=== PATIENT | female | born 1960 | race Caucasian/White ===

== ENCOUNTER 2022-10-02 15:27 | Emergency (ER) | payer BC, SELFPAY ==
[2022-10-02 15:47] VITALS: BP 162/92; PULSE 77; RESP 18; TEMP 36.3; O2SAT 96; BMI 31.0
--- NOTE | 2022-10-02 16:17 | ED_ITS ---
HPI - General Adult General Chief complaint: Heartburn/Gastritis Stated complaint: heartburn Time Seen by Provider: 10/02/22 15:59 History of Present Illness HPI narrative: 62-year-old woman presenting to the emergency department with complaint of what she would typically associated with heartburn type symptoms. It has been going on though for about a week. She describes it as ablegh pain and indicating epigastrium low sternum that. She can have some pain in her throat as well r adiating into both jaws but she says she also has a history of TMJ that might be part of it. Has tried Tums. Last took 20 mg of omeprazole around noon. She has not been taking that necessarily regularly during at least the last 2 weeks. Does get a sense of nausea with this discomfort. Has also had episodes where she has intense pain in the middle of the night and gestures across the epigastrium across both sides of her rib cage underneath. These episodes at night can be improved or resolved by getting up and eating some bread. She will be doing some traveling to [place] soon and worrying that this still be an issue then. She also received Botox earlier this week in her forehead. They are wondering if that might be related. The rare hayder really makes her stomach hurt. Related Data Home Medications Medication Instructions Recorded Confirmed bupropion HCl 300 mg 24 hr tablet, mg PO 10/02/22 extended release cyclosporine 0.05 % eye drops in a 1 drp ophthalmic (eye) Q12H 10/02/22 10/02/22 dropperette (Restasis) estradiol 0.01% (0.1 mg/gram) vaginal 10/02/22 vaginal cream levothyroxine 50 mcg tablet mcg 10/02/22 trazodone 50 mg tablet mg 10/02/22 Allergies Allergy/AdvReac Type Severity Reaction Status Date / Time No Known Drug Allergies Allergy Verified 10/02/22 15:46 Review of Systems Status of ROS: Reports: 10 or more systems reviewed and unremarkable except as noted in History and below Exam Narrative: Exam Narrative: Pleasant. Mildly anxious. Noting her elevated blood pressure. Slight bruising in the left mid forehead. Admittedly minimal wrinkles in the forehead. Facial skin just a little bit flushed more lucinda to having received recent treatment perhaps? Cranial nerves 2-12 to be intact. Moving all extremities without difficulty. Oropharynx is unremarkable. Neck is supple without swelling, no supraclavicular crepitus. Lungs are clear Cardiovascular with regular rate and rhythm no murmur rub or gallop No reproducible pain to palpation of the chest. Abdomen is soft and nontender. Extremities without edema. Const: Vital Signs, click to edit/add: Vital Signs - 24 hr 10/02/22 15:47 Temperature 97.3 F L Pulse Rate [Right Pulse Oximeter] 77 Respiratory Rate 18 Blood Pressure [Ri ght Upper Arm] 162/92 H Pulse Oximetry 96 Oxygen Delivery Me thod Room Air Documenting provider has reviewed patient's vital signs: yes Course Reevaluation(s) Reevaluation #1: She has received GI cocktail. Evaluation 25 minutes later she says that she is not having any particular pain but that her throat is numb. Further questioning reveals that she prior to receiving this she really would have rated only a 2 anyway and now it is pretty much gone I think she still feels a bit of tension yet in her mid chest. Vital Signs Vital signs: Initial Vital Signs Temperature 97.3 F L 10/02/22 15:47 Temperature Source Temporal Artery Scan 10/02/22 15:47 Pulse Rate 77 10/02/22 15:47 Respiratory Rate 18 10/02/22 15:47 Blood Pressure 162/92 H 10/02/22 15:47 Blood Pressure Mean 115 10/02/22 15:47 Blood Pressure Position Sitting 10/02/22 15:47 Pulse Oximetry 96 10/02/22 15:47 Oxygen Delivery Method 10/02/22 15:47 Vital Signs Temperature 97.3 F L 10/02/22 15:47 Pulse Rate 77 10/02/22 15:47 Respiratory Rate 18 10/02/22 15:47 Blood Pressure 162/92 H 10/02/22 15:47 Pulse Oximetry 96 10/02/22 15:47 Oxygen Delivery Method 10/02/22 15:47 Temperature 97.3 F L 10/02/22 15:47 Pulse Rate 77 10/02/22 15:47 Respiratory Rate 18 10/02/22 15:47 Blood Pressure 162/92 H 10/02/22 15:47 Pulse Oximetry 96 10/02/22 15:47 Oxygen Delivery Method 10/02/22 15:47 Medical Decision Making MDM Narrative Medical decision making narrative: Given persistent duration of discomfort, doubt this to be cardiac. GI cocktail trial but labs pending effect of that. Cocktail effect proves to be a bit of nebulous. Does appear to have symptoms consistent with hyperchlorhydria. Normal transaminases. In absence of continued pain did not pursue imaging further. Might benefit from limited upper abdominal ultrasound to evaluate for gallbladder disease. Perhaps other evaluation with regard to gallbladder funct ion? Lab Data Lab results reviewed: Yes I reviewed the patient's lab results Lab results narrative: Wholly unremarkable Labs: Lab Results 10/02/22 10/02/22 10/02/22 Range/Units 16:56 17:28 17:28 WBC 5.95 (4.50-11.00) K/uL RBC 4.26 (4.00-5.20) m/uL Hgb 12.4 (12.0-16.0) gm/dL Hct 37.1 (33.0-51.0) % MCV 87 (80-100) fL MCH 29 (26-34) pg MCHC 33 (32-36) gm/dL RDW Coeff of Margy 12.3 (11.5-15.5) % Plt Count 204 (140-440) K/uL Neut % (Auto) 57.3 (42.0-72.0) % Lymph % (Auto) 35.5 (20-44) % Schleicher % (Auto) 5.5 (0.0-11.0) % Eos % (Auto) 1.3 (0.0-7.0) % Baso % (Auto) 0.2 (0.0-3.0) % Neut # (Auto) 3.41 (1.7-7.0) K/uL Lymph # (Auto) 2.11 (0.90-2.90) K/uL Schleicher # (Auto) 0.30 (0.00-0.90) K/UL Eos # (Auto) 0.08 (0.00-0.50) K/uL Baso # (Auto) 0.01 (0.00-0.30) K/uL Abs Immat Gran (auto) 0.01 (0.00-0.30) K/uL Imm/Tot Granulo (auto) Not Reportable D-Dimer Quant (PE/DVT) (0.00-0.50) ug/ml Sodium 139 (135-149) mmol/L Potassium 3.8 (3.6-5.1) mmol/L Chloride 104 (96-114) mmol/L Carbon Dioxide 27 (20-32) mmol/L BUN 17 (7-30) mg/dL Creatinine 0.7 (0.5-1.5) mg/dL Estimated Creat Clear 47.63 Estimated GFR 97 ml/min Glucose 89 (60-115) mg/dL Calcium 9.4 (8.4-10.6) mg/dL Total Bilirubin 0.2 (0.1-1.5) mg/dL Direct Bilirubin 0.0 (0.0-0.5) mg/dL AST 25 (12-35) U/L ALT 25 (4-35) U/L Alkaline Phosphatase 72 (40-150) U/L Troponin I (0.01-0.04) ng/mL C-Reactive Protein < 0.5 L (0.5-1.0) mg/dL Total Protein 7.0 (6.0-8.3) g/dL Albumin 4.5 (3.3-5.0) g/dL Lipase (23-300) U/L 10/02/22 10/02/22 Range/Units 17:28 17:28 WBC (4.50-11.00) K/uL RBC (4.00-5.20) m/uL Hgb (12.0-16.0) gm/dL Hct (33.0-51.0) % MCV (80-100) fL MCH (26-34) pg MCHC (32-36) gm/dL RDW Coeff of Margy (11.5-15.5) % Plt Count (140-440) K/uL Neut % (Auto) (42.0-72.0) % Lymph % (Auto) (20-44) % Schleicher % (Auto) (0.0-11.0) % Eos % (Auto) (0.0-7.0) % Baso % (Auto) (0.0-3.0) % Neut # (Auto) (1.7-7.0) K/uL Lymph # (Auto) (0.90-2.90) K/uL Schleicher # (Auto) (0.00-0.90) K/UL Eos # (Auto) (0.00-0.50) K/uL Baso # (Auto) (0.00-0.30) K/uL Abs Immat Gran (auto) (0.00-0.30) K/uL Imm/Tot Granulo (auto) D-Dimer Quant (PE/DVT) 0.25 (0.00-0.50) ug/ml Sodium (135-149) mmol/L Potassium (3.6-5.1) mmol/L Chloride (96-114) mmol/L Carbon Dioxide (20-32) mmol/L BUN (7-30) mg/dL Creatinine (0.5-1.5) mg/dL Estimated Creat Clear Estimated GFR ml/min Glucose (60-115) mg/dL Calcium (8.4-10.6) mg/dL Total Bilirubin (0.1-1.5) mg/dL Direct Bilirubin (0.0-0.5) mg/dL AST (12-35) U/L ALT (4-35) U/L Alkaline Phosphatase (40-150) U/L Troponin I < 0.01 L (0.01-0.04) ng/mL C-Reactive Protein (0.5-1.0) mg/dL Total Protein (6.0-8.3) g/dL Albumin (3.3-5.0) g/dL Lipase 118 (23-300) U/L ECG Data Attestation: I personally reviewed and interpreted this ECG as follows: (Normal sinus rate of 78. Absence of ischemic changes) Discharge Plan Discharge Clinical Impression: GERD (gastroesophageal reflux disease), Chest pain Patient Disposition: Home, Self-Care Condition: Improved Instructions: GERD (Gastroesophageal Reflux Disease) (ED), Noncardiac Chest Pain (ED) Additional Instructions: Stay well hydrated... Not with hayder :) I would consider taking omeprazole at 40 mg daily either at the same time or divided 2 times daily (might be better to take another dose later in the evening given your propensity of overnight symptoms) over the next 2 weeks and reassess. For breakthrough discomfort consider medications like famotidine or liquid antacid/anti-gas. Return for persistent pain. Prescriptions: No Action trazodone 50 mg tablet levothyroxine 50 mcg tablet estradiol 0.01 % (0.1 mg/gram) cream VAGINAL Label Comments: APPLY GRAPE SIZE AMOUNT AROUND VAGINAL AREA AND PERINEUM bupropion HCl 300 mg tablet extended release 24 hr PO cyclosporine [Restasis] 0.05 % dropperette 1 drp ophthalmic (eye) Q12H Follow Up/Referrals: Provider,Not a Local [Primary Care Provider] - Stand Alone Forms: [employer] Info Instructions
[2022-10-02] MEDS: GI COCKTAIL (VISC LIDO/ANTACID) 30 ML PO (16:31)
[2022-10-02 17:38] LABS: Basophils Absolute Auto 0.01 K/uL (0.00-0.30); Basophils Percent Auto 0.2 % (0.0-3.0); Eosinophils Absolute Auto 0.08 K/uL (0.00-0.50); Eosinophils Percent Auto 1.3 % (0.0-7.0); Hematocrit 37.1 % (33.0-51.0); Hemoglobin* 12.4 gm/dL (12.0-16.0); Immature Granulocytes Abs Auto 0.01 K/uL (0.00-0.30); Lymphocytes Absolute Auto 2.11 K/uL (0.90-2.90); Lymphocytes Percent Auto 35.5 % (20-44); Mean Corpuscular HGB Conc 33 gm/dL (32-36); Mean Corpuscular Hemoglobin 29 pg (26-34); Mean Corpuscular Volume 87 fL (80-100); Monocytes Percent Auto 5.5 % (0.0-11.0); Neutrophils Absolute Auto 3.41 K/uL (1.7-7.0); Neutrophils Percent Auto 57.3 % (42.0-72.0); Platelet Count* 204 K/uL (140-440); RDW Coefficient of Variation % 12.3 % (11.5-15.5); Red Blood Count 4.26 m/uL (4.00-5.20); White Blood Count* 5.95 K/uL (4.50-11.00)
[2022-10-02 17:41] LABS: Slide Review Reflex No
[2022-10-02 18:03] LABS: Albumin* 4.5 g/dL (3.3-5.0)
[2022-10-02 18:04] LABS: Chloride* 104 mmol/L (96-114); Lipase* 118 U/L (23-300); Potassium* 3.8 mmol/L (3.6-5.1); Sodium* 139 mmol/L (135-149)
[2022-10-02 18:06] LABS: Alkaline Phosphatase* 72 U/L (40-150); Aspartate Amino Transferase* 25 U/L (12-35); Bilirubin Total* 0.2 mg/dL (0.1-1.5)
[2022-10-02 18:07] LABS: Alanine Aminotransferase* 25 U/L (4-35)
[2022-10-02 18:07] LABS: Creatinine* 0.7 mg/dL (0.5-1.5); Est. Creatinine Clearance* 47.63; Estimated Glomerular Filt Rate 97 ml/min
[2022-10-02 18:08] LABS: Blood Urea Nitrogen* 17 mg/dL (7-30); Calcium* 9.4 mg/dL (8.4-10.6); Carbon Dioxide* 27 mmol/L (20-32); Glucose* 89 mg/dL (60-115)
[2022-10-02 18:17] LABS: C Reactive Protein* < 0.5 mg/dL (0.5-1.0); Troponin I* < 0.01 ng/mL (0.01-0.04)
[2022-10-02 19:27] LABS: D Dimer Quantitative* 0.25 ug/ml (0.00-0.50)
== END 2022-10-02 19:27 | disposition home or self-care (01) ==
PROVIDERS: Emergency Provider Family Medicine
DX: K21.9 Gastro-esophageal reflux disease without esophagitis (principal); R07.89 Other chest pain
CPT/HCPCS: 36415; 80048; 80076; 83690; 84484; 85025; 85379; 86140; 99284; A9270